=== PATIENT | male | born 1960 | race Caucasian/White ===

== ENCOUNTER 2020-01-15 20:21 | Emergency (ER) | payer BC, SELFPAY ==
[2020-01-15 20:22] VITALS: BP 151/70; PULSE 128; RESP 18; TEMP 36.7; O2SAT 95; BMI 27.5
--- NOTE | 2020-01-15 22:19 | EKG12_ITS ---
Test Reason : DYSRHYTHMIA Blood Pressure : / mmHG Vent. Rate : 085 BPM Atrial Rate : 085 BPM P-R Int : 146 ms QRS Dur : 076 ms QT Int : 360 ms P-R-T Axes : 073 078 062 degrees QTc Int : 428 ms Normal sinus rhythm Normal ECG Confirmed by HOWARD GRAHAM, ANGEL ([id number]), editorial director NILAM ARREOLA ([id number]) on 01/19/2020 9:39:31 AM Referred By: BB Confirmed By:KATHI LAWRENCE MD
--- NOTE | 2020-01-15 22:20 | ED.DCSUM_ITS ---
History of Present Illness Chief Complaint: Dizziness Informant: Patient Onset: Today Current Severity: Moderate Maximum Severity: Moderate Narrative: Patient presents secondary to dizziness followed by nausea and vomiting. He states during the night last night he started feeling dizzy where he describes things moving. This is progressed and he has now developed nausea and vomiting. He does have a history of factor V Leiden and has history of PEs. He is currently on Coumadin. - Past Medical History (1) Factor V Leiden Status: Chronic (2) Pulmonary emboli Status: Chronic Past Medical History - Allergies and Home Meds Allergies/Adverse Reactions: Allergies No Known Allergies Allergy (Verified 01/15/20 20:24) Primary Care Physician: NOT,DEFINED [NON-STAFF] - Lives: Spouse/ Significant Other Review of Systems General: Denies: Chills, Fever Eyes: Denies: Visual changes - bilaterally ENT: Denies: Bilateral ear pain Cardiovascular: Denies: Chest pain, Palpitations Respiratory: Denies: Dyspnea, Cough Gastrointestinal: Reports: Nausea, Vomiting. Denies: Abdominal pain Musculoskeletal: Denies: Swelling, Extremity Pain Skin: Denies: Rash Neurological: Denies: Headache Hematologic: Denies: Easy bruising, Easy bleeding Allergy: Denies: Uticaria Physical Exam Vital Signs/Narrative: Vital Signs Temp Pulse Resp BP Pulse Ox 01/15/20 20:22 98.0 F 128 H 18 151/70 H 95 Inital Vital Signs reviewed: Yes General: Well nourished, Well developed Head: Normocephalic Eyes: Perrl, EOMI, - - Nystagmus Cardiovascular: Regular rate, Regular rhythm Respiratory: No distress, CTA bilaterally, Chest tenderness Abdomen: Nontender, Normal bowel sounds Skin: Normal color Neurological: Alert, Oriented x3, Normal Strength, Normal Sensation Psychological: Normal affect Diagnostic/Tx/Re-eval Laboratory Results 01/15/20 01/15/20 01/15/20 22:33 22:33 22:33 WBC 11.3 H RBC 4.94 Hgb 14.5 Hct 43.9 MCV 88.9 MCH 29.4 MCHC 33.0 RDW Std Deviation 41.4 RDW Coeff of Ella 12.7 Plt Count 175 MPV 11.6 Immature Gran % (Auto) 0.400 Neut % (Auto) 85.8 H Lymph % (Auto) 9.5 L [place] % (Auto) 4.2 Eos % (Auto) 0.0 Baso % (Auto) 0.1 Absolute Neuts (auto) 9.7 H Absolute Lymphs (auto) 1.08 Nucleated RBC % 0 PT 20.9 H INR 1.9 Sodium 140 Potassium 4.5 Chloride 109 H Carbon Dioxide 27.0 Anion Gap 4 L BUN 25 H Creatinine 1.16 Estim Creat Clear Calc 80.94 Est GFR (MDRD) Af Amer 83 Est GFR (MDRD) Non-Af 68 BUN/Creatinine Ratio 21.6 H Glucose 184 H Calcium 9.3 - EKG Initial EKG Interpretation: Sinus Rhythm - Sinus 85 with no acute ischemia. - Medical Decision Making She was given IV fluids, Zofran, and Ativan. On repeat evaluation he does have some improvement in his symptoms. He was able to ambulate to the restroom and back. He is complaining of reflux symptoms and will be given Pepcid. He will be given a dose of p.o. Antivert. Patient be discharged with Antivert and prescription for Phenergan. He is given Alysha maneuver print out to try at home if symptoms persist. Patient is planning to return home to [place] tomorrow. ED Disposition - Plan for ED Patient: Disposition: Home or Assisted Living Diagnosis: Vertigo Instructions: ED Vertigo Unspecified Prescriptions: Meclizine HCl [Antivert] 25 mg PO 4X/DAY PRN PRN #20 tablet PRN Reason: Dizziness proMETHazine tablet [Phenergan] 25 mg PO Q6H PRN PRN #10 tablet PRN Reason: Nausea
[2020-01-15] MEDS: Ondansetron 4 MG/2 ML Vial IV (22:32)
[2020-01-15] MEDS: 0.9% Normal Saline 1,000 ML 1000 ML IV (22:32)
[2020-01-15] MEDS: LORazepam 2 MG/ML Syringe 0.5 MG IV (22:33)
[2020-01-15 22:36] VITALS: PULSE 79; RESP 16
[2020-01-15 22:45] LABS: Absolute Lymphocyte Count 1.08 X10^3/uL (0.83-4.51); Absolute Neutrophil Count 9.7 X10^3/uL (2.0-7.7); Basophil# 0.01 X10^3/uL; Basophil% 0.1 % (0-1); Hematocrit 43.9 % (40-54); Hemoglobin 14.5 g/dL (13.0-16.5); Lymphocyte # 1.08 X10^3/ul (4.0); Lymphocyte % 9.5 % (19-41); Mean Corpuscular Hgb 29.4 pg (27.0-32.0); Mean Corpuscular Volume 88.9 fL (80-94); Mean Platelet Vol. 11.6 fl (6.2-12.0); Monocyte# 0.47 X10^3/uL; Monocyte% 4.2 % (0-10); NRBC Flagged by Analyzer 0 % (0-5); Neutrophil # 9.72 X10^3/uL (2.7-7.7); Neutrophil % 85.8 % (47-70); Platelet Count 175 K/mm3 (150-450); RBC Distribution Width CV 12.7 % (11.6-14.6); RBC Distribution Width SD 41.4 fl (35.1-43.9); Red Blood Count 4.94 M/mm3 (4.6-6.2); White Blood Count 11.3 K/mm3 (4.4-11.0)
[2020-01-15 22:56] LABS: International Normalized Ratio 1.9; Prothrombin Time (Protime)PT. 20.9 SECONDS (11.7-14.9)
[2020-01-15 23:05] LABS: Anion Gap 4 (5-15); BUN 25 mg/dL (7-18); BUN/Creat Ratio 21.6 RATIO (10-20); Calcium,Total 9.3 mg/dL (8.5-10.1); Chloride 109 mmol/L (98-107); Creatinine, Serum 1.16 mg/dL (0.70-1.30); EST Glomerular Filtration Rate 68 mL/min (>60); Est Glom Filt Rate - Afr Amer 83 mL/min (>60); Estimated Creatinine Clearance 80.94 ml/min; Glucose 184 mg/dL (74-106); Potassium 4.5 mmol/L (3.5-5.1); Sodium Level 140 mmol/L (136-145)
[2020-01-15] MEDS: 0.9% Normal Saline 1,000 ML 150 ML IV (23:32)
[2020-01-16] MEDS: Famotidine 20 MG Tablet 40 MG PO (00:03)
[2020-01-16] MEDS: Meclizine HCl 25 MG Tablet PO (00:03)
[2020-01-16 00:13] VITALS: BP 148/81; PULSE 78; RESP 16; O2SAT 96
== END 2020-01-16 00:24 | disposition home or self-care (01) ==
PROVIDERS: Emergency Provider Emergency Medicine
DX: R42 Dizziness and giddiness (principal); Z79.01 Long term (current) use of anticoagulants; Z86.711 Personal history of pulmonary embolism
CPT/HCPCS: 80048; 85025; 85610; 93005; 96361; 96374; 96375; 99285; J7030; J2405